=== PATIENT | female | born 2005 | race Caucasian/White ===

== ENCOUNTER → 2024-06-20 09:46 | Outpatient (REF) | payer BC, SELFPAY | LOC: RCS 09:46 | PROVIDERS: ATTENDING PHYSICIAN Internal Medicine Cardiovascular Disease; FAMILY PHYSICIAN Family Medicine | DX: R42 Dizziness and giddiness (principal); R00.0 Tachycardia, unspecified | CPT/HCPCS: 93017; 93350 ==